=== PATIENT | female | born 1985 | race Hispanic/Latino ===

== ENCOUNTER 2025-02-01 23:01 | Inpatient (IN) | payer MEDICAID, OTHER, SELFPAY ==
[2025-02-01] MEDS ORDERED: Carboprost 250 MCG/ML AMP IM PRN (23:34)
[2025-02-01] MEDS ORDERED: Diphenoxylate HCl/Atropine Tablet PO PRN ×2 (23:34)
[2025-02-01] MEDS ORDERED: hydrALAZINE 20 MG/ML VIAL SLOW IVP PRN (23:34)
[2025-02-01] MEDS ORDERED: Ibuprofen 800 MG TAB PO PRN (23:34)
[2025-02-01] MEDS ORDERED: Methylergonovine 0.2 MG/ML VIAL IM PRN (23:34)
[2025-02-01] MEDS ORDERED: Lidocaine 1% (PF) 30 ML VIAL SC PRN (23:34)
[2025-02-01] MEDS ORDERED: Acetaminophen 500 MG TAB PO PRN (23:34)
[2025-02-01] MEDS ORDERED: Ondansetron PF 4 MG/2 ML Vial IVP PRN (23:34)
[2025-02-01] MEDS ORDERED: Tranexamic Acid 1,000 MG/10 ML VIAL IVP PRN (23:34)
[2025-02-01] MEDS ORDERED: Oxytocin 30 units/NS 500 ML 500 ML IV SCH ×2 (23:45)
[2025-02-02 00:02] LABS: Hematocrit 36.4 % (34.9-44.5); Hemoglobin 11.8 g/dL (12.0-15.5); Mean Corpuscular Hemoglobin 28.5 pg (27.0-33.0); Mean Corpuscular Volume 87.9 fL (81.6-98.3); Platelet Count 266 10x3/uL (150-450); Red Blood Cell (RBC) Count 4.14 10x6/uL (3.90-5.03); White Blood Cell (WBC) Count 9.32 10x3/uL (3.5-10.5)
[2025-02-02 00:10] VITALS: BMI 21.8
[2025-02-02] MEDS: fentaNYL/Ropivacaine Epidural 100 ML ONE (00:24)
[2025-02-02 00:36] LABS: Syphilis Antibody Index 0.08 S/CO (<1.00 Non-Reactive)
[2025-02-02 00:38] LABS: Hep B Surf Ag - L&D Non-Reactive S/CO (NonReactive)
[2025-02-02] MEDS ORDERED: Ondansetron PF 4 MG/2 ML Vial IVP PRN (00:46)
[2025-02-02] MEDS ORDERED: Acetaminophen 325 MG TAB PO PRN (00:46)
[2025-02-02] MEDS ORDERED: diphenhydrAMINE 50 MG/ML VIAL IVP PRN (00:46)
[2025-02-02] MEDS ORDERED: Communication Order-Pharmacy FS SCH (01:00)
[2025-02-02] MEDS ORDERED: fentaNYL 2 mcg/Ropivacaine 0.2% Epidural 100 ML CADD EPIDURAL SCH (01:00)
[2025-02-02] MEDS ORDERED: Lanolin Ointment 7 GM TUBE TOP PRN (08:07)
[2025-02-02] MEDS ORDERED: Milk Of Magnesia 30 ML UDCUP PO PRN (08:07)
[2025-02-02] MEDS ORDERED: Benzocaine-Menthol 82.5 ML CAN TOP PRN (08:07)
[2025-02-02] MEDS ORDERED: Oxytocin 30 units/NS 500 ML 500 ML IV SCH (08:07)
[2025-02-02] MEDS ORDERED: HYDROcodone/Acetaminophen 5/325 mg Tablet PO PRN ×2 (08:07)
[2025-02-02] MEDS ORDERED: hydrALAZINE 20 MG/ML VIAL SLOW IVP PRN (08:07)
[2025-02-02] MEDS ORDERED: Bisacodyl 10 MG SUPP PR PRN (08:07)
[2025-02-02] MEDS ORDERED: Methylergonovine 0.2 MG/ML VIAL IM PRN (08:07)
[2025-02-02] MEDS: Ferrous Sulfate 325 MG TAB PO SCH ×2 (10:39→17:58)
[2025-02-02] MEDS: Ibuprofen 800 MG TAB PO SCH ×2 (11:13→11:59)
[2025-02-03 08:20] VITALS: BP 97/53; TEMP 98.2
== END 2025-02-03 12:55 | disposition home or self-care (01) | DRG 807 ==
LOC: CSHLD/OP 23:01 → CSHLD 23:35 → CSHPP 02-02 07:57
PROVIDERS: ADMIT Obstetrics & Gynecology; ATTEND Obstetrics & Gynecology
PROC: 10E0XZZ Delivery of Products of Conception, External Approach (ICD-10-PCS; principal; 2025-02-02)
DX: O80 Encounter for full-term uncomplicated delivery (principal); Z37.0 Single live birth; Z3A.38 38 weeks gestation of pregnancy; Z98.890 Other specified postprocedural states
CPT/HCPCS: 36415; 51702; 85027; 86780; 86850; 86900; 86901; 87340; 99285